=== PATIENT | male | born 2000 | race Caucasian/White ===

== ENCOUNTER 2024-08-05 09:26 | Emergency (ER) | payer OTHER ==
[~2024-08-05] VITALS: Ht 182.9 cm; Wt 79.4 kg
[2024-08-05 09:45] VITALS: BP 122/80; PULSE 93; RESP 16; TEMP 98.2; O2SAT 98
[2024-08-05] MEDS: TETRACAINE HCL/PF 0.5% OPTH 4 ML BTL OP ONE (10:02)
[2024-08-05] MEDS: FLUORESCEIN OPTH STRIP 1 MG OP ONE (10:02)
[2024-08-05] MEDS ORDERED: VIGOS LEFT EYE (10:28)
[2024-08-05] MEDS ORDERED: HUM SQ (10:28)
== END 2024-08-05 10:33 | disposition home or self-care (01) ==
LOC: MED 09:26
DX: S05.02XA Injury of conjunctiva and corneal abrasion without foreign body, left eye, initial encounter (principal); E10.9 Type 1 diabetes mellitus without complications; Z76.0 Encounter for issue of repeat prescription; R03.0 Elevated blood-pressure reading, without diagnosis of hypertension; Z79.899 Other long term (current) drug therapy; X58.XXXA Exposure to other specified factors, initial encounter; Y92.89 Other specified places as the place of occurrence of the external cause; Y93.89 Activity, other specified; Y99.8 Other external cause status
CPT/HCPCS: 99283